=== PATIENT | female | born 1995 | race Two or more races ===

== ENCOUNTER 2021-07-28 10:18 | Outpatient (REF) | payer BC, SELFPAY ==
[2021-07-28 11:52] LABS: COVID-19 Test Negative (Negative)
== END 2021-07-28 10:19 | disposition home or self-care (01) ==
LOC: HO.LAB 10:18
PROVIDERS: Visit Provider Internal Medicine
DX: Z20.822 Contact with and (suspected) exposure to COVID-19 (principal)
CPT/HCPCS: 36415; 87635; C9803